=== PATIENT | male | born 1940 | race Caucasian/White ===

== ENCOUNTER 2022-03-11 16:30 | Emergency (ER) | payer MEDICARE ==
[~2022-03-11] VITALS: Ht 185.4 cm; Wt 75.3 kg
[2022-03-11 17:14] LABS: HEMATOCRIT 40.5 % (36.7-47.1); MEAN CORPUSCULAR HEMOGLOBIN 32.1 uug (23.8-33.4); MEAN CORPUSCULAR VOLUME 93.9 fL (73.0-96.2); PLATELET COUNT (AUTO) 334 K/uL (152-348)
[2022-03-11 17:28] LABS: BILIRUBIN,DIRECT 0.1 mg/dL (0.0-0.2); BILIRUBIN,TOTAL 0.5 mg/dL (0.2-1.0); CREATININE 1.2 mg/dL (0.6-1.3); POTASSIUM 4.4 mmol/L (3.5-5.1); TOTAL PROTEIN, SERUM 7.7 g/dL (6.4-8.2)
--- NOTE | 2022-03-11 18:00 | NUR ---
Seen by PAUL for MSE.
[2022-03-11] MEDS ORDERED: AMIT100T2 PO (18:15)
[2022-03-11] MEDS ORDERED: ASPI81TA31 PO (18:15)
[2022-03-11] MEDS ORDERED: GABA600T12 PO (18:15)
[2022-03-11] MEDS ORDERED: PRAV40TA3 PO (18:15)
[2022-03-11] MEDS ORDERED: TIZA4TAB5 PO (18:15)
[2022-03-11] MEDS ORDERED: VORI200T4 PO (18:15)
[2022-03-11] MEDS ORDERED: TYLENOL #3 PO (18:15)
[2022-03-11] MEDS ORDERED: INSU100V39 SQ (18:15)
[2022-03-11] MEDS ORDERED: ROPI0.5T4 PO (18:15)
[2022-03-11] MEDS ORDERED: INSU3INS6 SQ (18:15)
--- NOTE | 2022-03-11 18:20 | NUR ---
Diabetic diet given.
[2022-03-11] MEDS ORDERED: KETOROLAC TROMETHAMINE 15 MG INJ IVP ONE (19:00)
[2022-03-11] MEDS ORDERED: KETOROLAC TROMETHAMINE 15 MG INJ ONE (19:11)
--- NOTE | 2022-03-11 20:56 | NUR ---
MEREDITH FROM [facility] STATES PATIENT HAS BEEN ACCEPTED TO [facility] IN [place].
[2022-03-11 21:23] LABS: *BILIRUBIN,URIN NEGATIVE (NEGATIVE); *CLARITY,URINE CLOUDY (CLEAR); *COLOR,URINE Other (YELLOW); *KETONES,URINE TRACE (NEGATIVE); LEUKOCYTE ESTERASE ,URINE 1+ (NEGATIVE); NITRITE, URINE NEGATIVE (NEGATIVE)
[2022-03-11 21:28] LABS: *BLOOD, URINE TRACE (NEGATIVE); UGLUCOSE 2+ (NEGATIVE)
--- NOTE | 2022-03-11 22:07 | NUR ---
Report was called to [facility], to nurse Huntley. Patient si stable and is without pain at this time. Awaiting for transport to arrive. Chart will be coppied and sent with transport.
[2022-03-11 22:54] LABS: BACTERIA,URINE MANY /HPF (NONE SEEN); RBC,URINE 0-3 /HPF (0-3); SQUAMOUS EPITHELIAL CELL,UR FEW /HPF (NONE SEEN)
[2022-03-11 23:05] VITALS: BP 121/76
== END 2022-03-11 23:09 ==
LOC: ER 16:30
DX: R62.7 Adult failure to thrive (principal); Z68.21 Body mass index [BMI] 21.0-21.9, adult; G89.29 Other chronic pain; M79.605 Pain in left leg; M79.604 Pain in right leg; E11.65 Type 2 diabetes mellitus with hyperglycemia; Z79.4 Long term (current) use of insulin; Z79.84 Long term (current) use of oral hypoglycemic drugs; E88.09 Other disorders of plasma-protein metabolism, not elsewhere classified; I10 Essential (primary) hypertension; E78.5 Hyperlipidemia, unspecified; J44.9 Chronic obstructive pulmonary disease, unspecified; G25.81 Restless legs syndrome; N40.1 Benign prostatic hyperplasia with lower urinary tract symptoms; R33.8 Other retention of urine; Z79.899 Other long term (current) drug therapy; Z20.822 Contact with and (suspected) exposure to COVID-19
CPT/HCPCS: 99285; 96374; 71045; 87426; 80076; 80048; 81001; 82962; 83880; 85025; 87186; 87086; 87077; 84484; 36415; 93005; J1885; A4663